=== PATIENT | female | born 1940 | race Caucasian/White ===

== ENCOUNTER → 2018-01-31 10:16 | Outpatient (CLI) | payer MEDICARE, OTHER, SELFPAY ==
--- NOTE | 2018-01-31 | DI.MRI.S_ITS ---
PROCEDURE: MRFOOT LT WO CON INDICATIONS: Left foot pain TECHNIQUE: Noncontrast sagittal T1 spin echo and T2 fast spin echo with fat saturation, long-axis T1 spin echo and T2 fast spin echo with fat saturation, short-axis T1 spin echo and T2 fast spin echo with fat saturation through the forefoot. COMPARISON: None. FINDINGS: Image quality: Diagnostic. Bones and joints: There is no acute fracture, dislocation, or suspicious osseous lesion identified involving the osseous structures of the midfoot or hindfoot. The ankle mortise is well-maintained. There are no osteochondral defects involving the tibial plafond through the talar dome. No significant degenerative changes are evident involving the midfoot or hindfoot joints. No significant joint effusions are appreciated. Soft tissues: The deltoid ligament and the spring ligament are intact. Additionally, the anterior and posterior distal tibiofibular ligaments are intact. The interim posterior talofibular ligaments and the calcaneofibular ligament are intact. The tibialis posterior tendon demonstrates increased signal near the level of the navicular without significant tearing. The flexor hallucis longus and flexor digitorum longus tendons are intact. There is flattening and increased signal identified involving the peroneus brevis tendon with a possible short segment split tear evident at the tip of the lateral malleolus. Slight increased signal and thickening involving the peroneus longus tendon just beyond the tip of lateral malleolus is present. There is edema within the surrounding peritendinous soft tissues. The posterior tibial nerve through the region of the tarsal tunnel appears to be within normal limits. There is normal fatty signal identified within the sinus tarsi. The Achilles tendon demonstrates mild thickening and increased signal without significant tearing. The plantar fascia appears to be intact and within normal limits. The tibialis anterior tendon demonstrates increased signal at its distal aspect without significant tearing. The extensor digitorum longus and extensor hallucis longus tendons appear intact. IMPRESSION: 1. Mild distal Achilles tendinopathy. 2. Mild tibialis posterior tendinopathy and tibialis anterior tendinopathy without significant tearing. 3. Short segment longitudinal split tear of the peroneus brevis tendon. There is corresponding mild peroneus longus tendinopathy. 4. No ligamentous injuries of the midfoot or hindfoot. Dictated by: Jerardo Mike M.D. on 01/31/2018 at 13:36 Approved by: Jerardo Mike M.D. on 01/31/2018 at 13:45
== END ==
PROVIDERS: Visit Provider Orthopaedic Surgery
DX: M79.672 Pain in left foot (principal); S86.312A Strain of muscle(s) and tendon(s) of peroneal muscle group at lower leg level, left leg, initial encounter
CPT/HCPCS: 73718

== ENCOUNTER → 2020-03-05 13:40 | Outpatient (CLI) | payer MEDICARE, OTHER, SELFPAY ==
--- NOTE | 2020-03-05 13:49 | DI.RAD.S_ITS ---
PROCEDURE: XR LUMBAR SPINE 2-3V INDICATIONS: Low back pain TECHNIQUE: 3 views of the lumbar spine were acquired. COMPARISON: None. FINDINGS: Bones: 5 [id number] vertebrae are present. There is normal bony alignment. No vertebral body compression fractures. No suspicious bony lesions. Degenerative change including intervertebral disc space narrowing and osteophytosis is present throughout the lumbar spine most severe at L5-S1. Soft tissues: Overlying bowel gas pattern is normal. Dense calcifications are present throughout the abdominal aorta. IMPRESSION: Mild degenerative change. Aortic atherosclerosis. Dictated by: Nadja Shelton M.D. on 03/05/2020 at 15:59 Approved by: Nadja Shelton M.D. on 03/05/2020 at 16:14
--- NOTE | 2020-03-05 13:49 | DI.RAD.S_ITS ---
PROCEDURE: XR HIP W PEL IF DONE LT MIN 4V INDICATIONS: Low back pain TECHNIQUE: AP pelvis with lateral view(s) of the bilateral hip(s). COMPARISON: None. FINDINGS: Bones: No fractures or dislocations. Pelvic ring appears intact. No suspicious bony lesions. There is mild bilateral hip joint space narrowing. Soft tissues: The visualized bowel gas pattern is normal. No suspicious soft tissue calcifications. IMPRESSION: Mild bilateral hip osteoarthritis. Dictated by: Nadja Shelton M.D. on 03/05/2020 at 15:58 Approved by: Ndaja Shelton M.D. on 03/05/2020 at 15:59
[2020-03-05 13:54] LABS: Bacteria Urine None Seen; RBC Urine None Seen (0-5/HPF)
[2020-03-05 14:42] LABS: Appearance Urine UA CLEAR; Bilirubin Urine UA NEGATIVE (NEGATIVE); Color Urine UA YELLOW; Glucose Urine UA NEGATIVE (Negative); Ketones Urine UA NEGATIVE (NEGATIVE); Leukocyte Esterase Urine UA NEGATIVE (NEGATIVE); Nitrite Urine UA NEGATIVE (Negative); Occult Blood Urine UA NEGATIVE (Negative); Protein Urine UA NEGATIVE (Negative); Specific Gravity Urine UA 1.025 (1.000-1.035); Urobilinogen Urine UA 0.2 E.U./dL (0.2)
[2020-03-05 14:48] LABS: Culture Indicated Urine Cult Not Indicated; Squamous Epithelial Cell Urine 0-1 /HPF (0-5/HPF); WBC Urine 0-1/HPF (0-5/HPF)
== END ==
PROVIDERS: PCP Student in an Organized Health Care Education/Training Program; Referring Provider Student in an Organized Health Care Education/Training Program; Visit Provider Student in an Organized Health Care Education/Training Program
DX: M25.551 Pain in right hip (principal); M25.552 Pain in left hip; M54.5 Low back pain; R39.15 Urgency of urination
CPT/HCPCS: 72100; 73522; 81001

== ENCOUNTER → 2020-03-19 13:06 | Outpatient (CLI) | payer MEDICARE, OTHER, SELFPAY ==
--- NOTE | 2020-03-19 13:10 | DI.MRI.S_ITS ---
PROCEDURE: MR HIP RT WO CON INDICATIONS: Right hip pain TECHNIQUE: Noncontrast coronal T1 spin echo and STIR through the bony pelvis. Coronal and axial T2 fast spin echo with fat saturation, sagittal T1 spin echo, and oblique axial T2 fast spin echo with fat saturation through the hip. COMPARISON: None. FINDINGS: Image quality: Excellent. Bones and joints: Bilateral hip joint osteoarthritic changes are seen slightly worse on the right side with superior joint space narrowing, subchondral sclerosis and small marginal osteophyte formation. No intraosseous lesions or fractures. No avascular necrosis of the femoral heads. The visualized lower lumbar spine appears normally aligned. Tendons and ligaments: Tendinosis and low-grade partial-thickness tear involving distal right gluteus medius and minimus tendons at their insertion on the greater trochanter is seen,, without associated muscle atrophy. The nearby proximal iliotibial band also appears intact. The iliopsoas tendon appears intact, without adjacent bursal fluid collections or evidence for impingement syndrome. The origin of the hamstring tendon is intact at the ischial tuberosity, as well as the associated sacrotuberous ligament. The straight and reflected heads of the rectus femoris muscle origin appear intact, as well as the conjoint tendon. The ligamentum teres appears intact where visualized. Labrum and cartilage: The acetabular labrum appears intact in the absence of intra-articular contrast. Cartilage surface of the femoral head appears of normal thickness. The alpha angle of the femur is within normal limits at less than 55 degrees. Soft tissues: Visualized muscles demonstrate normal bulk and internal signal. Quadratus femoris muscle demonstrates no internal edema to suggest ischiofemoral impingement. The proximal sciatic neurovascular bundle appears normal adjacent to the hamstring tendons. No free pelvic fluid. Bladder wall thickness is normal. Genitourinary structures and bowel loops appear normal where visualized. IMPRESSION: 1. Mild right worse than left bilateral hip joint osteoarthritis as above. No marrow edema. No fracture or dislocation. No evidence of avascular necrosis. 2. Tendinosis and low-grade partial-thickness tear involving distal right gluteus medius and minimus tendons at their insertion on the greater trochanter. No other muscle or tendon signal abnormality. 3. No gross focal labral tear is seen. Dictated by: Rick Cortes M.D. on 03/19/2020 at 13:17 Approved by: Rick Cortes M.D. on 03/19/2020 at 13:25
== END ==
PROVIDERS: PCP Student in an Organized Health Care Education/Training Program; Referring Provider Student in an Organized Health Care Education/Training Program; Visit Provider Student in an Organized Health Care Education/Training Program
DX: M25.551 Pain in right hip (principal); M25.552 Pain in left hip; M16.0 Bilateral primary osteoarthritis of hip; S76.011A Strain of muscle, fascia and tendon of right hip, initial encounter
CPT/HCPCS: 73721

== ENCOUNTER → 2021-01-28 07:19 | Outpatient (CLI) | payer MEDICARE, OTHER, SELFPAY ==
--- NOTE | 2021-01-28 07:21 | DI.MRI.S_ITS ---
PROCEDURE: MR KNEE RT WO CON INDICATIONS: Right knee pain with decreased ROM TECHNIQUE: Noncontrast sagittal PD fast spin echo and T2 fast spin echo with fat saturation, sagittal 3-D FLASH with fat saturation; coronal T1 spin echo and PD fast spin echo with fat saturation, and axial PD fast spin echo with fat saturation through the knee. COMPARISON: None. FINDINGS: Image quality: Excellent. Menisci: Diminutive appearance of medial meniscus is seen suggestive of prior partial meniscectomy versus chronic complex tear extending to both superior and inferior articulating surfaces. Peripheral displacement of medial meniscus bowing medial collateral ligament is seen. There is signal abnormality involving posterior horn of lateral meniscus extending to superior articulating surface concerning for focal oblique tear. The meniscal root ligaments appear intact. Cruciate ligaments: The anterior and posterior cruciate ligaments appear intact. Medial structures: Very low-grade MCL sprain is noted. The posterior oblique ligament, semimembranosus tendon insertions, oblique popliteal ligament, and meniscocapsular junction appear intact. Visualized portions of the pes anserinus tendons appear normal. No abnormal bursal fluid. Lateral structures: The lateral collateral ligament, long and short heads of the biceps femoris tendon appear intact. The popliteus tendon appears normal; the popliteofibular ligament appears intact. The posterosuperior and anteroinferior popliteomeniscal fascicles appear intact. The arcuate and fabellofibular ligaments appear intact, on either side of the lateral inferior geniculate artery. Iliotibial band appears normal. Anterior structures: The quadriceps and patellar tendons appear intact. Patellar alignment is normal. No femoral trochlear dysplasia or ventral trochlear prominence. No edema in the infrapatellar fat pad. Bones and cartilage: No bone marrow contusions or fractures. Moderate tricompartmental osteoarthritis and chondromalacia is seen most prominent in medial femoral tibial compartment. Joint space: There is moderate amount of joint fluid, no gross intra-articular loose body. There is a small popliteal cyst. Normal appearing synovial plicae are incidentally noted. IMPRESSION: 1. Diminutive appearance of medial meniscus suggestive of prior partial meniscectomy versus chronic complex tear extending to both superior and inferior articulating surfaces. Suggestion of subtle oblique tear involving posterior horn of lateral meniscus extending to superior articulating surface. 2. Cruciate ligaments are intact. Very low-grade MCL sprain. 3. Moderate tricompartmental osteoarthritis and chondromalacia most prominent in medial femoral tibial compartment. Moderate amount of joint fluid, no gross loose body. Small popliteal cyst. Dictated by: Rick Cortes M.D. on 01/28/2021 at 8:32 Approved by: Rick Cortes M.D. on 01/28/2021 at 10:01
== END ==
PROVIDERS: PCP Student in an Organized Health Care Education/Training Program; Referring Provider Student in an Organized Health Care Education/Training Program; Visit Provider Student in an Organized Health Care Education/Training Program
DX: M25.561 Pain in right knee (principal); M17.11 Unilateral primary osteoarthritis, right knee; M94.261 Chondromalacia, right knee; M71.21 Synovial cyst of popliteal space [Baker], right knee
CPT/HCPCS: 73721

== ENCOUNTER → 2023-01-31 12:10 | Outpatient (CLI) | payer MEDICARE, OTHER, SELFPAY ==
--- NOTE | 2023-01-31 | DI.MRI.S_ITS ---
PROCEDURE: MRFOOT LT WO CON INDICATIONS: Stress fracture, unspecified site, initial encounter for fra TECHNIQUE: Noncontrast sagittal T1 spin echo and T2 fast spin echo with fat saturation, long-axis T1 spin echo and T2 fast spin echo with fat saturation, short-axis T1 spin echo and T2 fast spin echo with fat saturation through the forefoot. COMPARISON: [facility], MR, MR FOOT LT WO CON, 01/31/2018, 10:45. FINDINGS: Image quality: Excellent. Bones and joints: Osteoarthritic changes are noted throughout visualized portion of midfoot and forefoot more notably involving TMT joints and MTP joints with joint space narrowing and subchondral sclerosis. There is no marrow edema. No fracture or dislocation. No evidence of metatarsal stress fractures. Soft tissues: The visualized plantar foot muscles demonstrate normal signal and bulk. Visualized flexor and extensor tendons appear intact, without tenosynovitis. The distal insertions of the peroneus brevis and longus tendons appear intact. The principal Lisfranc ligament appears intact. No soft tissue ganglion cysts or bursal fluid collections. Sagittal images demonstrate low to moderate grade plantar plate tear of the 5th MTP joint near its distal insertion. IMPRESSION: 1. Midfoot and forefoot joint osteoarthritis. No fracture or dislocation. No evidence of metatarsal stress fracture. 2. Finding is concerning for low to moderate grade tear involving plantar plate of 5th MTP joint near its distal insertion. 3. Extensor and flexor tendons are grossly intact. Lisfranc ligament is intact. Dictated by: Rick Cortes M.D. on 01/31/2023 at 15:37 Approved by: Rick Cortes M.D. on 01/31/2023 at 15:46
== END ==
PROVIDERS: PCP Student in an Organized Health Care Education/Training Program; Referring Provider Orthopaedic Surgery Foot and Ankle Surgery; Visit Provider Orthopaedic Surgery Foot and Ankle Surgery
DX: M19.072 Primary osteoarthritis, left ankle and foot (principal); M84.30XA Stress fracture, unspecified site, initial encounter for fracture
CPT/HCPCS: 73718